=== PATIENT | female | born 1965 | race Caucasian/White ===

== ENCOUNTER 2019-02-13 09:26 | Emergency (ER) | payer OTHER ==
[~2019-02-13] VITALS: Ht 180.3 cm; Wt 110.0 kg
[2019-02-13] MEDS ORDERED: METF-960 PO (09:56)
[2019-02-13] MEDS ORDERED: LEVO112T4 PO (09:56)
[2019-02-13] MEDS ORDERED: PARO10TA89 PO (09:56)
[2019-02-13] MEDS ORDERED: LOSA25TA41 PO (09:56)
[2019-02-13 10:00] LABS: GLUCOSE,POINT OF CARE 97 MG/DL (70-110)
[2019-02-13] MEDS ORDERED: IBUPROFEN 600 MG TABLET PO ONE (11:30)
[2019-02-13 12:49] VITALS: BP 143/85
== END 2019-02-13 12:52 | disposition home or self-care (01) ==
LOC: EMS 09:27
DX: M25.521 Pain in right elbow (principal); E11.9 Type 2 diabetes mellitus without complications; I10 Essential (primary) hypertension; F32.9 Major depressive disorder, single episode, unspecified; E03.9 Hypothyroidism, unspecified; Z79.84 Long term (current) use of oral hypoglycemic drugs